=== PATIENT | male | born 1985 | race Caucasian/White ===

== ENCOUNTER 2016-11-26 20:23 | Emergency (ER) | payer OTHER ==
[~2016-11-26] VITALS: Ht 175.3 cm; Wt 154.6 kg
[~2016-11-26 20:23] MED LIST: ALBU8.5H2 INHALATION; PRE20 PO
--- NOTE | 2016-11-26 20:28 | ED.REPORT ---
HPI-Overdose/Alcohol Toxicity Date of Service Nov 26, 2016 ED Provider: Harpreet Obregon MD A 30 year old male with a history of schizophrenia presents to the ED via EMS after reportedly consuming excessive amounts of meth 4 hours prior to arrival. Patient was pulled over by the [facility] and he states that he at the meth at his home and his landlord directed him to the ED. He states that it feels as if "a bunch of little girls are touching me". Patient used heroin 2 weeks ago and THC earlier today. He denies fever, cough or nausea. He reports that he is taking medication for his schizophrenia. He denies any suicidal ideation. Nursing Notes Stated Complaint: METH Chief Complaint: Substance Abuse Nursing Notes Reviewed: Yes Allergies: Coded Allergies: No Known Allergies (Unverified , 09/23/16) Scheduled Albuterol HFA (Proair HFA) 8.5 Gm Hfa.aer.ad 2 PUFFS INHALATION Q4H Prednisone (PredniSONE) 20 Mg Tablet 60 MG PO DAILY General Time Seen by Provider: 20:31 Chief Complaint Ingestion, methanol Hx Obtained From: Patient Arrived By: Ambulance Onset Occurred: 1 - 4 hours ago Symptom Duration: Since onset Progression Since Onset: Unchanged Associated with: Denies: Nausea Pertinent Negative: Pt denies other symptoms Recent Healthcare: No recent doctor visit, No recent hospitalization Risk-Overdose/Alcohol Tox )( Suicide Risk Stratification : Substance abuse RF Statements: Risk factors reviewed Past Medical History Past Medical History Asthma Reports: Schizophrenia Past Surgical History T&A Smoking History Current Every Day Smoker Social History Drug Use: IV drugs, Meth, THC Other Social History: Local resident Ambulatory Status Independent Review of Systems Pt reports tactile hallucinations Constitutional: Denies: Chills, Fever Respiratory: Denies: Non-productive cough, Shortness of breath Cardiovascular: Denies: Chest pain GI: Denies: Abdominal pain, Nausea, Vomiting Neurologic: Denies: Change LOC Complete sys rev & neg: except as marked. Physical Exam Initial Vital Signs Vital Signs (First) Date Time Temp Pulse Resp B/P Pulse Ox O2 Delivery O2 Flow Rate FiO2 11/26/16 20:29 36.8 82 20 148/87 97 Room Air Initial VS: Reviewed Extremities: Vascular intact, Neuro intact, No swelling, No tenderness Skin: Warm, Dry, No cyanosis General/Constitutional: Awake, Alert Respiratory / Chest: Atraumatic, Breath sounds NL, Breath sounds = bilat Cardiovascular: Heart rate NL, Regular rhythm, Heart sounds NL Abdomen: Atraumatic, Soft, Non-tender Neurologic: Oriented X3, Speech NL Psychiatric: Not suicidal, Not homicidal Abnormal Mood/Affect: Positive: Flat affect Interpretation & Diagnostics Lab Results Interpretation Result Diagram: 11/26/16211711/26/162117 Test 11/26/16 21:18 11/26/16 21:55 White Blood Count 15.5th/mm3 (3.8-10.1) Red Blood Count 4.37mil/mm3 (4.40-5.80) Hemoglobin 14.1g/dL (13.8-17.2) Hematocrit 41.7% (41.0-50.0) Mean Corpuscular Volume 95.4fL (81-100) Mean Corpuscular Hemoglobin 32.3pg (27.0-35.0) Mean Corpuscular Hemoglobin Concent 33.8% (32.0-37.0) Red Cell Distribution Width 13.4% (12.3-15.4) Platelet Count 393bil/L (150-400) Neutrophils (%) (Auto) 67.1% (40-74) Lymphocytes (%) (Auto) 18.1% (14-46) Monocytes (%) (Auto) 12.0% (4-12) Eosinophils (%) (Auto) 1.9% (0-5) Basophils (%) (Auto) 0.3% (0-3) Sodium Level 136mEq/L (134-144) Potassium Level 3.6mEq/L (3.5-5.2) Chloride Level 97mEq/L (97-108) Carbon Dioxide Level 23mmol/L (18-29) Blood Urea Nitrogen 4mg/dL (6-20) Creatinine 0.78mg/dL (0.76-1.27) Estimat Glomerular Filtration Rate 125mL/min (>59) Glucose Level 104mg/dL (60-99) Calcium Level 9.8mg/dL (8.5-10.1) Total Bilirubin 0.2mg/dL (0.0-1.2) Aspartate Amino Transf (AST/SGOT) 15U/L (0-50) Alanine Aminotransferase (ALT/SGPT) 24U/L (0-44) Alkaline Phosphatase 106U/L (25-150) Total Protein 7.6g/dL (6.4-8.4) Albumin 4.2g/dL (3.4-5.0) Thyroid Stimulating Hormone (TSH) 5.710uIU/mL (0.450-4.500) Hold Ray Top Tube Received (Received) Hold Urine Received (Received) Lab Results Interpretation: Urine Dip Positive: THC Methamphetamine Amphetamines EtOH: Negative Re-Eval/Medical Decision Re-Evaluation/Progress : Time of Eval: 22:44 Patient Status: Condition improved Re-Evaluation/Progress Note: Patient is rechecked. He is informed of his lab results. All questions are addressed. Consultation : Call Returned at: 22:41 Foreign Banknote Teller: Agrees with eval, Agrees with plan Note: PACT -Rhett Recommends discharge. No other services are available for him this evening. Rhett believes that he has lost his housing at [facility] because of his volitional drug abuse. Counseled Regarding: Diagnosis, Lab results Discharge & Departure Impression: Primary Impression: Substance abuse Disposition: Home Discharge Condition All VS Reviewed: Yes Condition: Stable Patient Instructions: Methamphetamine Abuse (ED) Additional Instructions: No dangerous condition is suspected at this time. I recommend that you abstain from methamphetamines. Follow-up with your PACT team tomorrow for your medication. Referrals: NOPCP (PCP) [facility] Scribe Attestation Portions of this note were transcribed by Ronaldo Baumann. I, Dr. Obregon personally performed the history, physical exam and medical decision-making; I reviewed and confirmed the accuracy of the information in the transcribed note. Signed by: Briana Whittington, 11/26/16 2200. Harpreet Obregon MD Nov 26, 2016 20:28 RONALDO BAUMANN Nov 26, 2016 20:39
[2016-11-26 20:29] VITALS: BP 148/87; PULSE 82; RESP 20; O2SAT 97
[2016-11-26 21:40] LABS: BASOPHILS % (AUTO) 0.3 % (0-3); EOSINOPHILS % (AUTO) 1.9 % (0-5); Mean Corpuscular Hemoglobin 32.3 pg (27.0-35.0); Mean Corpuscular Volume 95.4 fL (81-100); NEUTROPHILS % (AUTO) 67.1 % (40-74); Platelet Count 393 bil/L (150-400)
[2016-11-26 22:55] VITALS: BP 139/88; PULSE 94; RESP 20; O2SAT 96
== END 2016-11-26 22:56 | disposition home or self-care (01) ==
LOC: SED 20:23
DX: F15.20 Other stimulant dependence, uncomplicated (principal); J45.909 Unspecified asthma, uncomplicated; F20.9 Schizophrenia, unspecified; F17.200 Nicotine dependence, unspecified, uncomplicated

== ENCOUNTER 2017-01-10 11:01 | Inpatient (IN) | payer OTHER, MEDICAID ==
[~2017-01-10] VITALS: Ht 175.3 cm; Wt 165.0 kg
[2017-01-10 11:25] VITALS: BP 154/99; PULSE 74; RESP 16; O2SAT 96
[2017-01-10 13:01] LABS: BASOPHILS % (AUTO) 0.4 % (0-3); EOSINOPHILS % (AUTO) 3.5 % (0-5); MONOCYTES % (AUTO) 10.2 % (4-12); Mean Corpuscular Hemoglobin 32.9 pg (27.0-35.0); Mean Corpuscular Volume 96.4 fL (81-100); NEUTROPHILS % (AUTO) 61.5 % (40-74); Platelet Count 293 bil/L (150-400)
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
[2017-01-10 18:28] VITALS: BP 131/89; PULSE 75; RESP 20; O2SAT 99
[2017-01-11 00:23] VITALS: BP 127/80; PULSE 81; RESP 18; O2SAT 95
[2017-01-11 06:39] VITALS: BP 125/82; RESP 20; O2SAT 97
[2017-01-11 06:52] LABS: Mean Corpuscular Hemoglobin 32.2 pg (27.0-35.0); Mean Corpuscular Volume 96.4 fL (81-100)
[2017-01-11] MEDS ORDERED: OLANZapine Zydis ODT 5 mg Tablet PO PRN (09:45)
[2017-01-11] MEDS ORDERED: Magnesium Hydroxide 10 mL Oral Concentration PO PRN (09:45)
[2017-01-11] MEDS ORDERED: hydrOXYzine Pamoate 25 mg Capsule PO PRN (09:45)
[2017-01-11] MEDS ORDERED: Alum-Mag Hydrox-Simeth 30 mL Suspension PO PRN (09:45)
[2017-01-11] MEDS ORDERED: Benzocaine-Menthol Lozenge 2/Pkg PO PRN (09:45)
[2017-01-11] MEDS: LORazepam 1 mg Tablet PO PRN ×2 (11:06→20:38)
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
[2017-01-11] MEDS ORDERED: LIT300 PO (13:29)
[2017-01-11] MEDS ORDERED: HALO10TA PO (13:29)
[2017-01-11] MEDS ORDERED: OXYB5TAB10 PO (13:29)
[2017-01-11] MEDS ORDERED: AMLO5TAB2 PO (13:29)
[2017-01-11] MEDS ORDERED: TRAZ-115 PO (13:29)
[2017-01-11] MEDS ORDERED: LEVO112T4 PO (13:29)
[2017-01-11] MEDS ORDERED: LURA40TA3 PO (13:29)
[2017-01-11] MEDS ORDERED: CHOL100045 PO (13:29)
[2017-01-11] MEDS ORDERED: HALO100V4 IM (13:29)
[2017-01-11] MEDS ORDERED: DIVA500T6 PO (13:29)
[2017-01-11] MEDS ORDERED: DIVA250T4 PO (13:29)
[2017-01-11] MEDS ORDERED: KETO120S3 TP (13:29)
[2017-01-11] MEDS ORDERED: LITH600C PO (13:29)
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
--- NOTE | 2017-01-11 17:20 | NUR ---
Nurses PRN Patient received Zyprexa Zydis 10mg for increasing agitation with loud cursing while on the phone and an agitated edge when spoken to,will assess response.
[2017-01-11] MEDS ORDERED: Albuterol HFA 60 Puff 8 Gm Inhaler INHALATION PRN (18:00)
--- NOTE | 2017-01-12 05:10 | NUR ---
nursing, nights, 11-7 s/o- has appeared to sleep after 2114 during q 15 minute assessments. a- no apparent distress. p- monitor behavior/emotional state, quality, times and amount of sleep, use and effect of medication. gil
--- NOTE | 2017-01-12 05:36 | NUR ---
Pt isolated to room most of shift except when family visited. After a short time he became agitated with family and asked them to leave. While saying goodbye and going to the door to leave mother began to rant at Pt about not smoking in here and that they will not bring him cigarettes so he needs to accept that. Pt held it together fairly well until mother refused to leave the topic alone and at that time he asked for them to be escorted out, but please come back tomorrow. Asleep at 2115. Pt observed every 15 minutes as ordered
[2017-01-12 08:43] VITALS: BP 111/63; PULSE 81; RESP 16
--- NOTE | 2017-01-12 11:27 | NUR ---
Nursing Note [id number] Behavior, Mood S/O: Pt ate 100% of breakfast. VS stable. Pt out of room for meals & groups. Pt has flat affect with monotone speech. Denies suicidal/homicidal ideation. Denies depression or anxiety. Responds briefly to peers & staff when approached. Conversation is superficial. Cooperative with staff. A: Pt has little insight into why he is being hospitalized. P: Provide supportive environment. Monitor medications & effects.
--- NOTE | 2017-01-12 13:31 | PROG NOTE ---
[address] [address] PROGRESS NOTE PATIENT: JC AARON : 1985 MR#: [id number] ADMIT: 01/11/2017 JOB ID: [id number] DATE: 01/12/2017 CHIEF COMPLAINT: "I think that's a good idea." This per patient report. HISTORY OF PRESENT ILLNESS: As stated above, the patient did identify that he would agree to applications for LR 90 to be submitted tomorrow with a conditional release. The patient reportedly indicates that he knows that they were trying to actually get his LR 90 extended a couple weeks ago but unfortunately this did not follow through. He reportedly has been isolating to his room early this morning with no evidence of significant concern. His laboratory data has been collected and reviewed with current CBC with mild elevation of a white count at 11.1. Nicut level was noted at 1.0 and valproic acid level at 47. I did discuss that last evening, I did elect to titrate his Depakote to 750 mg at bedtime and 500 mg q. a.m., based on his levels of valproate and discussed possible continuation of titration to 1000 mg at bedtime and 500 mg q. a.m., based on his recent difficulties with escalation of mood instability. OBJECTIVE: On mental status examination, he was cooperative. He made intermittent eye contact. His speech was of normal tone, frequency and volume. His mood was dysphoric last evening after interactions with his family. Mood fairly appropriate with myself on interaction. His affect was congruent. His thought process showed no evidence of racing thoughts, flight of ideas, loose or disconnected thinking. His thought content, no evidence of current suicidal, homicidal ideation. There is a mild degree of paranoia. He denies any active hallucinations or delusions at this time. He was alert, oriented to time and place. Attention and concentration intact. Memory intact in the short term, senior living, recent. Insight and judgment are fair. PHYSICAL EXAM: Vital signs are current. Temperature was noted at 36.7, pulse 81, respirations 16, BP 111/63. MEDICATION REVIEW: Includes: 1. Norvasc 5 mg daily. 2. Latuda 40 mg q. a.m. 3. Vitamin D3 2000 units daily. 4. Synthroid 112 mcg daily. 5. Depakote 500 mg q. a.m., 750 mg q.h.s. 6. Nicut carbonate 600 mg q. a.m., 300 mg q.h.s. 7. Trazodone 50 mg q.h.s. 8. Ditropan 5 mg b.i.d. 9. Haldol 20 mg q. a.m. 10. Zyprexa Zydis 10 mg 4x daily p.r.n. ASSESSMENT: AXIS I 1. Schizoaffective disorder. 2. Polysubstance use disorder including methamphetamines and opiates. AXIS II Antisocial personality disorder. AXIS III History of hypertension. AXIS IV Stressors are noted for chronic mental health issues, history of noncompliance, substance abuse. AXIS V Global Assessment of Functioning of current 30. PLANS: 1. Recommendations for LR 90 to be submitted tomorrow with a plan of discharge post with continuation of outpatient care and [facility]. 2. Recommendations for further titration of Depakote to 500 mg q. a.m., 1000 mg q.h.s. with follow up Depakote level to be obtained in approximately one week through his outpatient care provider team.
--- NOTE | 2017-01-12 17:34 | NUR ---
Observations 0900 to 2130 Pt affect and mood flat, isolative and unmotivated. Pt stayed in his bed most of the shift. Pt ate meals in D.R. and ate 100% of meals. Pt ate snacks. Pt refused to attend groups and unit activities. Pt attended community meeting and set a goal for the day. Pt rated his 10/10 with 10 being the best. Pt was unsocial when out of his room. Pt maintained behavior throughout the shift. Pt was polite and cooperative. Pt went out on patio with staff to get some fresh air. Pt watched part of a movie before going back to his room. Pt was observed every 15 minutes throughout the shift as ordered.
--- NOTE | 2017-01-12 18:20 | NUR ---
Nurses Note Evening Patient has been in his room on and off this shift. He ate in the dining room without interaction with others. His hygiene has been within normal limits. He avoids eye contact and has been superficial in conversations. Patient has maintained behavioral control. He agreed to medications prior to court in the am with hopes of discharging after court. Maintain q 15min.checks for safety and support. Addendum: 01/12/17 at 1855 by FAVIAN MEANS RN Amended: Links added.
--- NOTE | 2017-01-13 05:11 | NUR ---
Nursing Noc Pt cooperative with treatment, pleasant with com writer, but slightly isolative to conversation. Does not appear to want to carry conversation, but pleasant in interaction. Accepting medications as prescribed, first noted to be sleeping at 2200 by Q15 minute safety checks and remained asleep throughout the night. Court scheduled for today.
--- NOTE | 2017-01-13 05:23 | NUR ---
OBSERVATIONS 1900 TO 0700 Pt was pleasant and cooperative with staff. Pt participated in evening wrap-up group and stated that he felt he achieved his goal of "realizing what he did wrong." Pt stated that he was struggling without marijuana and cigarettes but that he felt as though he was clearing up but that he was still "tripping pretty bad." Pt rated his day and mood 10/10. Pt made a slightly inappropriate comment to a female pt but was receptive to request to maintain decorum. Pt was reported asleep at 2200 and slept through the night. Maintained Q15 checks for safety as directed.
--- NOTE | 2017-01-13 09:46 | PCM.DIMED ---
Discharge Instructions Date of Service Jan 13, 2017 Dates of Hospitalization Jan 11, 2017 at 10:14 Discharge Diagnosis Discharge Diagnosis Schizoaffective DO bipolar type Polysubstance Use DO-- Methamphetamines, Opiates and Marijuana Anti social personality DO Diet No restrictions Activity No restrictions Jewel Stevenson DO Jan 13, 2017 09:46
[2017-01-13] MEDS ORDERED: DEP500A PO (09:49)
--- NOTE | 2017-01-13 11:03 | NUR ---
Nursing Discharge Note: Patient cooperative with discharge process. Acknowledges understanding of d/c instructions and a copy was given to the patient's aunt upon leaving unit at 1050. Belongings accounted for and with patient. Patient denies harmful thoughts and hallucinations at this time.
--- NOTE | 2017-01-13 13:25 | NUR ---
Case Management/Counseling: S: "I'm ready to discharge." O: Patient slept 8+ hours last night as per staff. He denies S/I and H/I. He denies auditory and visual hallucinations. Out-patient appointments: Rhett Akhtar, counselor, [facility] PACT, 01/17/17 at 9:25am and 01/17/17 at 1:20pm. A: Patient is cooperative, anxious, fair insight, fair judgment. P: Follow care plan, coordinate out-patient providers.
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
[2017-02-18] MEDS ORDERED: Haloperidol Decanoate 50 mg/mL Inj IM SCH (08:30)
== END 2017-01-13 10:50 | disposition home or self-care (01) | DRG 885 ==
LOC: SED 11:01 → MHC 01-11 10:14
PROVIDERS: ADMIT Internal Medicine; ATTEND Psychiatry & Neurology Psychiatry
DX: F20.0 Paranoid schizophrenia (principal); R45.850 Homicidal ideations; F15.10 Other stimulant abuse, uncomplicated; J45.909 Unspecified asthma, uncomplicated; F17.200 Nicotine dependence, unspecified, uncomplicated; F12.90 Cannabis use, unspecified, uncomplicated; F60.2 Antisocial personality disorder; F11.90 Opioid use, unspecified, uncomplicated